=== PATIENT | female | born 1990 | race Caucasian/White ===

== ENCOUNTER 2021-12-24 08:33 | Outpatient (CLI) | payer BC | END 2021-12-24 08:34 | disposition home or self-care (01) | LOC: SCSMRI 08:33 | PROVIDERS: ATTEND Physician Assistant | DX: R16.0 Hepatomegaly, not elsewhere classified (principal); N28.89 Other specified disorders of kidney and ureter; K76.9 Liver disease, unspecified | CPT/HCPCS: 74183 ==

== ENCOUNTER 2022-09-26 07:31 | Outpatient (CLI) | payer BC | END 2022-09-26 07:32 | disposition home or self-care (01) | LOC: SCSMRI 07:31 | PROVIDERS: ATTEND Obstetrics & Gynecology Gynecologic Oncology | DX: C54.1 Malignant neoplasm of endometrium (principal) | CPT/HCPCS: 72197 ==

== ENCOUNTER 2024-01-23 08:31 | Outpatient (CLI) | payer BC | END 2024-01-23 08:32 | disposition home or self-care (01) | LOC: CT 08:31 | PROVIDERS: ATTEND Advanced Practice Midwife | DX: C54.1 Malignant neoplasm of endometrium (principal) | CPT/HCPCS: 74177 ==